=== PATIENT | female | born 1965 | race Caucasian/White ===

== ENCOUNTER → 2017-08-13 | Outpatient (CLI) | payer BC ==
[~2017-08-13] MED LIST: BRAIN MIGHT-DH1 EACH PO; CLARITIN,ALAVAR10 MG PO; LISINOPRIL20 MG PO; SUDAFED PE PRE1 EAC3 PO
== END | disposition home or self-care (01) ==
LOC: AMB 07-30 12:30
DX: L72.11 Pilar cyst (principal)
CPT/HCPCS: 88304